=== PATIENT | female | born 1975 | race Caucasian/White ===

== ENCOUNTER 2017-07-27 16:58 | Observation (INO) | payer OTHER ==
[~2017-07-27] VITALS: Ht 162.6 cm; Wt 83.0 kg
[2017-07-27 17:02] VITALS: BP 162/84
[2017-07-27] MEDS ORDERED: EFFEXOR XR75 MG PO (17:07)
[2017-07-27] MEDS ORDERED: LEVOTHYROXINE100 MC1 PO (17:07)
[2017-07-27] MEDS ORDERED: LOPRESSOR25 PO (17:08)
[2017-07-27] MEDS ORDERED: XANAX 0.5 MG0.5 MG PO (17:08)
[2017-07-27] MEDS ORDERED: LIPITOR 20 MG T20 M1 PO (17:08)
[2017-07-27 17:48] LABS: ABSOLUTE LYMPHOCYTES 1.9 thou/uL (0.8-5.3); ABSOLUTE MONOCYTES 0.4 thou/uL (0.0-1.2); ABSOLUTE NEUTROPHILS 6.9 thou/uL (1.6-8.1); BASOPHILS 0.3 %; EOSINOPHILS 0.3 %; HEMATOCRIT 50.1 % (37.0-47.0); HEMOGLOBIN 17.2 gm/dL (12.0-15.0); LYMPHOCYTES 20.6 %; MCH 31.8 pg (26.0-34.0); MCHC 34.3 g/dL (28.0-37.0); MCV 92.6 fL (80.0-100.0); MONOCYTES 3.8 %; MPV 10.3 fl. (7.2-11.1); NUCLEATED RBCS 0 /100WBC; PLATELET COUNT* 142 thou/uL (150-400); RBC 5.41 mil/uL (4.20-5.00); RDW-CV 17.4 % (10.5-14.5); WBC 9.2 thou/uL (4.0-11.0)
[2017-07-27 17:52] LABS: ANION GAP 12 mmol/L (7-16); BUN 8 mg/dL (7-18); CALCIUM 9.2 mg/dL (8.5-10.1); CHLORIDE 103 mmol/L (98-107); CO2 24 mmol/L (21-32); CREATININE 0.8 mg/dL (0.6-1.3); GLUCOSE 133 mg/dL (70-99); POTASSIUM 3.6 mmol/L (3.5-5.1); SODIUM 139 mmol/L (136-145)
[2017-07-27 18:04] LABS: ALKALINE PHOSPHATASE 76 U/L (46-116); APTT 25.4 Seconds (25.0-31.3); LIPASE 140 U/L (73-393); NT-PRO BRAIN NAT PEPTIDE 221 pg/mL (<300); SGOT 23 U/L (15-37); SGPT 21 U/L (30-65); TOTAL BILIRUBIN 0.6 mg/dL (<0.1-1.0); TOTAL PROTEIN 7.6 g/dL (6.4-8.2); TROPONIN-I LEVEL <0.06 ng/mL (<0.06)
[2017-07-27 18:20] LABS: URINE BILIRUBIN NEGATIVE (Negative); URINE BLOOD 3+ (Negative); URINE CLARITY CLEAR; URINE COLOR YELLOW; URINE GLUCOSE-RANDOM NEGATIVE (Negative); URINE KETONES 1+ (Negative); URINE LEUKOCYTES-REFLEX NEGATIVE (Negative); URINE NITRITE-REFLEX NEGATIVE (Negative); URINE PROTEIN NEGATIVE (Negative); URINE SPECIFIC GRAVITY 1.015 (1.005-1.030); URINE UROBILINOGEN 0.2 E.U./dl (0.2-1.0)
[2017-07-27 18:27] LABS: AMP/METHAMP Negative (Negative); BARBITURATES Negative (Negative); BENZODIAZEPINES POSITIVE (Negative); COCAINE Negative (Negative); METHADONE Negative (Negative); OPIATES POSITIVE (Negative); PCP Negative (Negative); THC Negative (Negative)
[2017-07-27 18:38] LABS: CK-MB MASS < 0.5 ng/mL (<0.5-3.6)
[2017-07-27 18:40] LABS: CRYSTALS None Seen /LPF (None Seen); MUCUS None Seen strn/LPF (None Seen); SQUAMOUS >10 Many /LPF (0-3)
[2017-07-27 18:43] LABS: CASTS None Seen /LPF (None Seen); URINE WBC-REFLEX 0-5 Rare /HPF (0-5)
[2017-07-27 18:45] LABS: BACTERIA-REFLEX 1-9 Few /HPF (None Seen)
[2017-07-27 18:46] LABS: URINE RBC 3-10 Few /HPF (0-2)
[2017-07-27 20:47] VITALS: BP 137/67
[2017-07-27 21:15] VITALS: BP 139/71
[2017-07-27 23:48] VITALS: BP 127/62
[2017-07-28 03:29] VITALS: BP 128/55
--- NOTE | 2017-07-28 08:05 | NUR ---
PATIENT RESTED IN BED, NO ACUTE CHANGES. PATIENT DID NOT SHOW SIGNS OF DISTRESS. EKG DONE DUE TO CHEST PAIN, CLEAR OF PR. DOCTOR NOTIFIED OF CHEST PAIN, SUDHOLT, NO NEW ORDERS. PATIENT NPO DUE TO CARDIO CONSULT. FALL PRECAUTIONS IN PLACE.
[2017-07-28 08:22] VITALS: BP 124/64
--- NOTE | 2017-07-28 09:37 | NUR ---
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 ORDERED, TRACING SR WITH 1ST DEGREE- UPON ASSESSMENT PT NOTED TO BE RESTING IN BED, AT SIDE- PT A&O X4- CONTINENT OF BOWEL AND BLADDER- UP AD-BETH WITH STEADY GAIT NOTED- LCTA, RESP EVEN AND UN-LABORED- VSS, O2 SAT 96% ON RA- ABDOME SOFT/ROUND/NON-TENDER, BS X 4 QUADS- LAST BM REPORTED 07/27/17- IV NOTED TO RIGHT FA INTACT AND SL- PT CURRENTLY NPO PENDING CARDIOLOGY CONSULT, METOPRLOL HELD THIS AM PENDING CARDIOLOGY PLANS- PT RATES HEADACHE 10/15 THIS AM, DENEIS NEED FOR PAIN MEDICATIONS- REST WITH DARK QUITE ENVIRONMENT ON PLACE- CALL LIGHT AND PERSONAL BELONGINGS WITH IN REACH- HOURLY ROUNDS IN PLACE R/T SAFETY/NEEDS- ALL NEEDS MET AT THIS TIME-WCTM
[2017-07-28 12:16] VITALS: BP 126/62
[2017-07-28 14:04] VITALS: BP 126/62
--- NOTE | 2017-07-28 14:04 | NUR ---
Pt out of the room at stress test, spoke with Pt's mother at bedside. Pt normally resides at home with her and 3 children. Pt is active and independent, works outside of the home. No DME. No hx of HH or SNF. Mother believes that Pt sleeps with a cpap at night. Goal is to return home once medically stable for dc. Following for dc needs.
--- NOTE | 2017-07-28 15:13 | EXE ---
[place] [address] STRESS ECHOCARDIOGRAM Name: ANGELA PEREZ Room: [address]#: [id number] Admission: 07/27/17 Attend Phys: Jonathon Pierre Discharge: Date of : 71 Date of Service: 07/28/17 1513 Report #: [id number] THIS REPORT FOR: //name// APPROVED REPORT Study performed: 07/28/2017 13:22:32 Exam: Stress Echocardiogram Indication: Chest pain Patient Location: In-Patient Stress Nurse: Nuha Gasca RN Room #: [facility] Supervising Physician: El Pulido MD Status: routine Ht: 5 ft 4 in HR: 69 bpm BP: 141/89 mmHg Rhythm: NSR Medical History Cardiac Risk Factors: Smoking Procedure The patient underwent an Exercise Stress Test using the Blayne Protocol. Blood pressure, heart rate, and EKG were monitored. An Echocardiogram was performed by operations and maintenance technician in four stages in quad fashion. At peak stress, four selected images were obtained and placed side by side with resting images for comparison. Stress Test Details Stress Test: Exercise stress testing was performed using a Blayne protocol. HR Resting HR: 69 bpm Max Heart Rate (APMHR): 176 bpm Max HR Achieved: 179 bpm Target HR (85% APMHR): 149 bpm % of APMHR: 101 Recovery HR: 95 bpm HR response to stress: Normal HR response to stress BP Resting BP: 141/89 mmHg Max BP: 166/54 mmHg Recovery BP: 146/96 [place] [address] STRESS ECHOCARDIOGRAM Name: ANGELA PEREZ Room: [address]#: [id number] Admission: 07/27/17 Attend Phys: Jonathon Pierre Discharge: Date of : 71 Date of Service: 07/28/17 1513 Report #: [id number] Clinical Reason for Termination: Dyspnea Exercise duration: 7 min 10 sec Highest Stage Achieved: Stage 3: 3.4 mph at 14% grade. Exercise capacity: 8.79 METs Pre-Stress Echo The resting Echocardiogram showed normal left ventricular contractility with an estimated Ejection Fraction of about 55-60%. Normal wall motion in all segments on baseline images. Post-Stress Echo The stress Echocardiogram showed normal left ventricular contractility with an estimated Ejection Fraction of about >70%. Normal augmentation of wall motion in all segments on post stress images. Clinical No clinical or ECG evidence for ischemia. Conclusion Clinical Response: Non-ischemic Exercise Capacity: Average Stress ECG Response: Non-ischemic Stress Echo Images: Non-ischemic Other Information Study Quality: Good <ELECTRONICALLY SIGNED> By: El Pulido MD, [facility] 07/28/17 1513 151 151 El Pulido MD, [facility] /INF
[2017-07-28] MEDS ORDERED: PRILOSEC 20 MG20 MG PO (15:54)
--- NOTE | 2017-07-28 16:15 | NUR ---
STRESS ECHO REPORTED NORMAL-ORDERS RECIEVED THIS SHIFT FOR OKAY TO D/C PER CARDIOLOGY WITH FINAL ORDERS FOR OKAY PER THIS SHIFT- IV TO RIGHT FA D/C'D ALONG WITH MILL ORDER SCHEDULER PRIOR TO D/C- D/C TEACHING/EDUCATION GIVEN TO PT PRIOR TO D/C WITH ALL QUESTIONS AND CONCERNS ADDRESSED- DULCE EDUCATION PROVIDED TO PT PRIOR TO D/C- NEW SCRIPT RICKY INTO PHARMACY INDICATED, PT NOTIFIED-BELONGINGS PACKED AND ACCOUNTED FOR PER PT- PT ESCORTED VIA AMBULATION PER TECH WITH BELONGINGS; AT SIDE AT TIME OF D/C- PT NOTED TO HAVE LEFT UNIT AT 1615- NO PROBLEMS TO NOTE AT TIME OF D/C
--- NOTE | 2017-07-28 16:20 | EKG ---
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 : 1975 Requested By: Lorrie Gonzalez Order Number: [id number] MD: El Pulido Measurements Intervals [place] Rate: 109 P: 70 RI: 169 QRS: 83 QRSD: 97 T: 34 QT: 336 QTc: 453 Interpretive Statements Sinus tachycardia LAE, consider biatrial enlargement Compared to ECG 05/04/2008 09:50:40 Heart rate has increased T-wave abnormality no longer present Electronically Signed On 07-28-2017 16:19:53 CDT by El Pulido [email or web address] <ELECTRONICALLY SIGNED> By: lE Pulido MD, [facility] 07/28/17 1619 170 01 El Pulido MD, [facility] /EPI
--- NOTE | 2017-07-28 16:25 | EKG ---
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1975 Requested By: Lorrie Gonzalez Order Number: [id number] MD: El Pulido Measurements Intervals [place] Rate: 71 P: 33 NM: 212 QRS: 50 QRSD: 102 T: 9 QT: 412 QTc: 448 Interpretive Statements Sinus rhythm Prolonged NM interval Compared to ECG 05/04/2008 09:50:40 First degree AV block now present T-wave abnormality no longer present Electronically Signed On 07-28-2017 16:25:20 CDT by El Pulido [email or web address] <ELECTRONICALLY SIGNED> By: El Pulido MD, [facility] 07/28/17 1625 16 16 El Pulido MD, [facility] /EPI
--- NOTE | 2017-07-28 16:27 | EKG ---
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[place] : 1975 Requested By: Jonathon Pierre Order Number: [id number] Aylin JOE: El Pulido Measurements Intervals [place] Rate: 66 P: 41 ME: 220 QRS: 59 QRSD: 95 T: 29 QT: 398 QTc: 417 Interpretive Statements Sinus rhythm Prolonged ME interval Compared to ECG 05/04/2008 09:50:40 First degree AV block now present T-wave abnormality no longer present Electronically Signed On 07-28-2017 16:26:52 CDT by El Pulido [email or web address] <ELECTRONICALLY SIGNED> By: El Pulido MD, [facility] 07/28/17 1626 35 35 El Pulido MD, [facility] /EPI
[2017-08-01 02:06] LABS: DOPAMINE 33 pg/mL (0-48); EPINEPHRINE 17 pg/mL (0-62); NOREPINEPHRINE 697 pg/mL (0-874)
== END 2017-07-28 16:15 | disposition home or self-care (01) ==
LOC: M.ERS 16:58 → M.2W 18:53 → M.TBA-ER 18:53 → M.2W 20:58
PROVIDERS: Personal Emergency Response Attendant; ADMIT Internal Medicine
DX: R07.9 Chest pain, unspecified (principal); I51.81 Takotsubo syndrome; I20.0 Unstable angina; I10 Essential (primary) hypertension; E78.5 Hyperlipidemia, unspecified; E03.9 Hypothyroidism, unspecified; F17.210 Nicotine dependence, cigarettes, uncomplicated; Z98.890 Other specified postprocedural states; Z72.89 Other problems related to lifestyle